=== PATIENT | male | born 1985 | race African-American/Black ===

== ENCOUNTER 2017-05-10 08:03 | Emergency (ER) | payer MEDICAID ==
[~2017-05-10] VITALS: Ht 157.5 cm; Wt 64.0 kg
[~2017-05-10 08:03] MED LIST: CETI10CA PO; FLUT9.9S NASAL; HC1C30 TOP; IBUP800T25 PO; LORA10TA3 PO
[2017-05-10 08:05] VITALS: Ht 157.5 cm; Wt 64.0 kg
[2017-05-10] MEDS ORDERED: IBUPROFEN 800 MG TAB PO ONE (08:30)
[2017-05-10] MEDS ORDERED: IBUP-1542 PO (08:31)
[2017-05-10] MEDS ORDERED: ACET500C5 PO (08:31)
--- NOTE | 2017-05-10 08:36 | ERD ---
ER Documentation Chief Complaint Date/Time DATE: 05/10/17 TIME: 08:33 Chief Complaint right thumb pain/injury HPI This a 31-year-old male who presents to the emergency department today complaining of some right thumb pain. Patient states that he [place] at the car wash when the gait of the truck fell down on his hand. Denies any previous trauma. Denies any fevers or chills per ROS All systems reviewed and are negative except as per history of present illness. Medications Home Meds Active Scripts Acetaminophen* (Tylophen*) 500 Mg Capsule, 1 CAP PO Q6H Y for PAIN AND OR ELEVATED TEMP, #30 CAP Prov:ANTONIO CHRISTENSEN PA-C 05/10/17 Ibuprofen* (Motrin*) 600 Mg Tab, 600 MG PO Q6, #30 TAB Prov:ANTONIO CHRISTENSEN PA-C 05/10/17 Fluticasone Propionate (Flonase Allergy Relief) 9.9 Ml [place].susp, 1 SPRAY NASAL BID, #1 BOTTLE TO EACH NOSTRIL Prov:FAB MUKHERJEE PA-C 02/17/16 Cetirizine Hcl* (Zyrtec*) 10 Mg Capsule, 10 MG PO DAILY, #10 TAB.CHEW Prov:FAB MUKHERJEE PA-C 02/17/16 Ibuprofen* (Motrin*) 800 Mg Tab, 800 MG PO Q6H Y for PAIN AND OR ELEVATED TEMP, #30 TAB Prov:OLIVIA HARTLEY MD 11/29/15 Hydrocortisone* Topical (Hydrocortisone* Topical) 1%-28.35 Gm Cream..g., 1 APPLIC TOP Q6 Y for ITCHING, #1 TUB Prov:MARCELLO WILLOUGHBY PA-C 11/13/15 Loratadine* (Loratadine*) 10 Mg Tablet, 10 MG PO DAILY, #30 TAB Prov:MARCELLO WILLOUGHBY PA-C 11/13/15 Allergies Allergies: Coded Allergies: No Known Allergy (Unverified , 11/13/15) PMhx/Soc History of Surgery: No Anesthesia Reaction: No Hx Neurological Disorder: No Hx Respiratory Disorders: No Hx Cardiac Disorders: No Hx Psychiatric Problems: No Hx Miscellaneous Medical Probl: No Hx Alcohol Use: No Hx Substance Use: No Hx Tobacco Use: No Smoking Status: Never smoker Physical Exam Vitals Vital Signs Date Time Temp Pulse Resp B/P Pulse Ox O2 Delivery O2 Flow Rate FiO2 05/10/17 08:05 98.2 73 18 118/82 99 Physical Exam Const: NAD Head: Atraumatic Eyes: Normal Conjunctiva ENT: Normal External Ears, Nose and Mouth. Neck: Full range of motion..~ No meningismus. Resp: Clear to auscultation bilaterally Cardio: Regular rate and rhythm, no murmurs Abd: Soft, non tender, non distended. Normal bowel sounds Skin: No petechiae or rashes MSK: Right thumb with no obvious deformity. No effusion. No ecchymosis. Full active range of motion. Mild tenderness palpation at metacarpal. Pulses 2 +. Distal neurovascularly intact. Neur: Awake and alert Psych: Normal Mood and Affect Results 24 hrs Current Medications Medications (Trade) Dose Ordered Sig/Wilfred Route PRN Reason Start Time Stop Time Status Last Admin Dose Admin Ibuprofen (Motrin) 800 mg ONCE ONCE PO 05/10/17 08:30 05/10/17 08:31 DC 05/10/17 08:31 Procedures/MDM This 31-year-old male who presents the emergency department today complaining of right thumb pain after dropping the gait of the truck on his thumb. Given that there was trauma and patient did have some mild tenderness palpation I did offer to obtain images. Patient declined stating "I do not think it is broken" . Patient symptoms at this time most consistent with sprain versus strain versus contusion. He did have full active range of motion. Low suspicion for septic joint or gout. Low suspicion for acute fracture dislocation. Patient was given Motrin here in the emergency department and placed a metal splint. I will give him a prescription for Tylenol Motrin for home. At this time the patient is stable for discharge and outpatient management. Patient should follow up with their PCP in the next 1-2 days. I have given him a list of community resources. they may return to the emergency department sooner for any persistent or worsening of symptoms. Patient understood and agreed with the plan. Departure Diagnosis: Primary Impression: Thumb injury Encounter type: initial encounter Laterality: right Qualified Code: S69.91XA - Thumb injury, right, initial encounter Condition: Fair Patient Instructions: Sprain Finger Referrals: COMMUNITY CLINICS YOU HAVE RECEIVED A MEDICAL SCREENING EXAM AND THE RESULTS INDICATE THAT YOU DO NOT HAVE A CONDITION THAT REQUIRES URGENT TREATMENT IN THE EMERGENCY DEPARTMENT. FURTHER EVALUATION AND TREATMENT OF YOUR CONDITION CAN WAIT UNTIL YOU ARE SEEN IN YOUR DOCTORS OFFICE WITHIN THE NEXT 1-2 DAYS. IT IS YOUR RESPONSIBILITY TO MAKE AN APPOINTMENT FOR FOLOW-UP CARE. IF YOU HAVE A PRIMARY DOCTOR --you should call your primary doctor and schedule an appointment IF YOU DO NOT HAVE A PRIMARY DOCTOR YOU CAN CALL OUR PHYSICIAN REFERRAL HOTLINE AT IF YOU CAN NOT AFFORD TO SEE A PHYSICIAN YOU CAN CHOSE FROM THE FOLLOWING [facility] CLINICS [facility] [address] [facility] [address] [facility]. [facility] [address] [facility] [address] [facility]. [facility] [address] [facility]. [facility]. [address] Additional Instructions: Call your primary care doctor TOMORROW for an appointment during the next 1-2 days.See the doctor sooner or return here if your condition worsens before your appointment time. Stay in splint until further evaluation by primary care physician Take Tylenol or Motrin for pain Apply ice to painful area ANTONIO CHRISTENSEN PA-C May 10, 2017 08:36
== END 2017-05-10 08:57 | disposition home or self-care (01) ==
LOC: FTE 08:03
DX: S69.91XA Unspecified injury of right wrist, hand and finger(s), initial encounter (principal); W20.8XXA Other cause of strike by thrown, projected or falling object, initial encounter; Y92.9 Unspecified place or not applicable
CPT/HCPCS: 29125; Z7502; Z7610

== ENCOUNTER 2017-07-11 08:11 | Emergency (ER) | payer MEDICAID ==
[~2017-07-11] VITALS: Wt 70.0 kg
[~2017-07-11 08:11] MED LIST changes: +ACET500C5 PO; +IBUP-1542 PO
[2017-07-11] MEDS ORDERED: HC30CR25 TOP (08:50)
[2017-07-11] MEDS ORDERED: BEN25 PO (08:50)
--- NOTE | 2017-07-11 09:33 | ERD ---
ER Documentation Chief Complaint Date/Time DATE: 07/11/17 TIME: 09:25 Chief Complaint BODY ITCH X 4 YEARS HPI This is a 32 year old male presenting to ER for generalized pruritus x 4 years. No visible rash or lesions. No shortness of breath or difficulty breathing. No wheezing. No swelling. No fevers. No new foods, medications, pets or recent move. Patient states he has not tried any medications for this. He states that he went to a Primary care provider however was never referred to a specialist or given medications. Patient denies having a primary care provider. ROS All systems reviewed and are negative except as per history of present illness. Medications Home Meds Active Scripts Hydrocortisone* Topical (Hydrocortisone* Topical) 2.5%-28.3 Gm Cream..g., 1 APPLIC TOP BID, #1 TUB Prov:JEEVAN LOPEZ NP 07/11/17 Diphenhydramine Hcl* (Benadryl*) 25 Mg Cap, 25 MG PO Q6, #30 CAP Prov:JEEVAN LOPEZ NP 07/11/17 Acetaminophen* (Tylophen*) 500 Mg Capsule, 1 CAP PO Q6H Y for PAIN AND OR ELEVATED TEMP, #30 CAP Prov:ANTONIO CHRISTENSEN PA-C 05/10/17 Ibuprofen* (Motrin*) 600 Mg Tab, 600 MG PO Q6, #30 TAB Prov:ANTONIO CHRISTENSEN PA-C 05/10/17 Fluticasone Propionate (Flonase Allergy Relief) 9.9 Ml [place].susp, 1 SPRAY NASAL BID, #1 BOTTLE TO EACH NOSTRIL Prov:FAB MUKHERJEE PA-C 02/17/16 Cetirizine Hcl* (Zyrtec*) 10 Mg Capsule, 10 MG PO DAILY, #10 TAB.CHEW Prov:FAB MUKHERJEE PA-C 02/17/16 Ibuprofen* (Motrin*) 800 Mg Tab, 800 MG PO Q6H Y for PAIN AND OR ELEVATED TEMP, #30 TAB Prov:OLIVIA HARTLEY MD 11/29/15 Hydrocortisone* Topical (Hydrocortisone* Topical) 1%-28.35 Gm Cream..g., 1 APPLIC TOP Q6 Y for ITCHING, #1 TUB Prov:MARCELLO WILLOUGHBY PA-C 11/13/15 Loratadine* (Loratadine*) 10 Mg Tablet, 10 MG PO DAILY, #30 TAB Prov:MARCELLO WILLOUGHBY PA-C 11/13/15 Allergies Allergies: Coded Allergies: No Known Allergy (Unverified , 11/13/15) PMhx/Soc Medical and Surgical Hx: pt denies Medical Hx, pt denies Surgical Hx History of Surgery: No Anesthesia Reaction: No Hx Neurological Disorder: No Hx Respiratory Disorders: No Hx Cardiac Disorders: No Hx Psychiatric Problems: No Hx Miscellaneous Medical Probl: No Hx Alcohol Use: No Hx Substance Use: No Hx Tobacco Use: No Smoking Status: Never smoker Physical Exam Vitals Vital Signs Date Time Temp Pulse Resp B/P Pulse Ox O2 Delivery O2 Flow Rate FiO2 07/11/17 08:16 98.0 78 18 132/70 99 Physical Exam Const: NAD, alert Head: Atraumatic Eyes: Normal Conjunctiva ENT: Normal External Ears, Nose and Mouth. Neck: Full range of motion..~ No meningismus. Resp: Clear to auscultation bilaterally. No wheezing, rhonchi or crackles. No stridor or labored breathing. Cardio: Regular rate and rhythm, no murmurs Abd: Soft, non tender, non distended. Normal bowel sounds Skin: No petechiae or rashes. No lesions. No erythema or swelling. Back: No midline or flank tenderness Ext: No cyanosis, or edema Neur: Awake and alert Psych: Normal Mood and Affect Procedures/MDM MDM: 32 year old male presents to ER with generalized pruritus x 4 years. Vitals are stable. No visible rash or irritation on physical exam. No lesions. There appears to be dry skin throughout on physical exam. Patient is alert and oriented throughout visit and appears stable for discharge home. Low suspicion for scabies, anaphylaxis reaction or acute allergic reaction. Differential diagnosis includes but not limited to atopic dermatitis, contact dermatitis psoriasis and allergic reaction. Patient is appropriate for outpatient management and will be given prescriptions for Benadryl and hydrocortisone cream. Instructed patient to follow up with PCP in the next 2-3 days for reassessment and additional management. Resources provided. Return to ED for any new or worsening symptoms. Patient verbalizes understanding. All questions answered at discharge. Departure Diagnosis: Primary Impression: Generalized pruritus Condition: Stable Patient Instructions: Atopic Dermatitis (Eczema) Referrals: YOEL HAYS MD, [facility] YOU HAVE RECEIVED A MEDICAL SCREENING EXAM AND THE RESULTS INDICATE THAT YOU DO NOT HAVE A CONDITION THAT REQUIRES URGENT TREATMENT IN THE EMERGENCY DEPARTMENT. FURTHER EVALUATION AND TREATMENT OF YOUR CONDITION CAN WAIT UNTIL YOU ARE SEEN IN YOUR DOCTORS OFFICE WITHIN THE NEXT 1-2 DAYS. IT IS YOUR RESPONSIBILITY TO MAKE AN APPOINTMENT FOR FOLOW-UP CARE. IF YOU HAVE A PRIMARY DOCTOR --you should call your primary doctor and schedule an appointment IF YOU DO NOT HAVE A PRIMARY DOCTOR YOU CAN CALL OUR PHYSICIAN REFERRAL HOTLINE AT IF YOU CAN NOT AFFORD TO SEE A PHYSICIAN YOU CAN CHOSE FROM THE FOLLOWING [facility] [address] [facility] [address] [facility]. [facility] [address] [facility] [address] [facility] [address] [facility] [facility]. [address] [facility]. [facility] YOU HAVE RECEIVED A MEDICAL SCREENING EXAM AND THE RESULTS INDICATE THAT YOU DO NOT HAVE A CONDITION THAT REQUIRES URGENT TREATMENT IN THE EMERGENCY DEPARTMENT. FURTHER EVALUATION AND TREATMENT OF YOUR CONDITION CAN WAIT UNTIL YOU ARE SEEN IN YOUR DOCTORS OFFICE WITHIN THE NEXT 1-2 DAYS. IT IS YOUR RESPONSIBILITY TO MAKE AN APPOINTMENT FOR FOLOW-UP CARE. IF YOU HAVE A PRIMARY DOCTOR --you should call your primary doctor and schedule and appointment IF YOU DO NOT HAVE A PRIMARY DOCTOR YOU CAN CALL OUR PHYSICIAN REFERRAL HOTLINE AT . IF YOU CAN NOT AFFORD TO SEE A PHYSICIAN YOU CAN CHOSE FROM THE FOLLOWING [facility]: [facility] [address] [place] [address] [facility] [address] [place] [address] [facility] [address] [place] [address] Additional Instructions: Call your primary care doctor TOMORROW for an appointment during the next 2-3 days.See the doctor sooner or return here if your condition worsens before your appointment time. Return to ED for any new or worsening symptoms. JEEVAN LOPEZ NP Jul 11, 2017 09:33
== END 2017-07-11 09:03 | disposition home or self-care (01) ==
LOC: FTE 08:11
DX: L29.9 Pruritus, unspecified (principal)
CPT/HCPCS: 99283

== ENCOUNTER 2017-10-16 18:42 | Emergency (ER) | payer MEDICAID ==
[~2017-10-16] VITALS: Ht 172.7 cm; Wt 66.1 kg
[~2017-10-16 18:42] MED LIST changes: +BEN25 PO; +HC30CR25 TOP
[2017-10-16 19:06] VITALS: Ht 172.7 cm; Wt 66.1 kg
[2017-10-16] MEDS ORDERED: KETOROLAC 60 MG INJ IM STA (20:32)
[2017-10-16] MEDS ORDERED: DIPHENHYDRAMINE 25 MG CAP PO ONE (21:00)
[2017-10-16] MEDS ORDERED: CLOT30CR24 TOP (21:16)
[2017-10-16] MEDS ORDERED: BEN25 PO (21:16)
[2017-10-16] MEDS ORDERED: IBUP-1542 PO (21:16)
[2017-10-16 21:32] VITALS: BP 132/91; PULSE 65; RESP 16; TEMP 98.4
--- NOTE | 2017-10-16 21:32 | ERD ---
ER Documentation Chief Complaint Chief Complaint headache, body itchiness HPI 32-year-old male patient with no significant past medical history presents to the ED complaining of a sudden onset of headache started this morning. Patient describes the pain as a pressure-like sensation and rates it a 5 out of 10. Reports that sexually active with one partner. States that he is itchy all over predominantly in his genitalia. Denies any penile discharge, scrotal pain. Denies any dysuria, urgency, frequency, abdominal pain, nausea, vomiting , fever. ROS All systems reviewed and are negative except as per history of present illness. Medications Home Meds Active Scripts Clotrimazole* (Clotrimazole* AF) 1% - 30 Gm Cream.gm., 1 APPLIC TOP BID for 28 Days, #1 TUB Prov:ERNA GLORIA PA-C 10/16/17 Ibuprofen* (Motrin*) 600 Mg Tab, 600 MG PO Q6, #30 TAB Prov:ERNA GLORIA PA-C 10/16/17 Diphenhydramine Hcl* (Benadryl*) 25 Mg Cap, 25 MG PO Q6 Y for ITCHING/RASH, #30 TAB Prov:ERNA GLORIA PA-C 10/16/17 Hydrocortisone* Topical (Hydrocortisone* Topical) 2.5%-28.3 Gm Cream..g., 1 APPLIC TOP BID, #1 TUB Prov:JEEVAN LOPEZ NP 07/11/17 Diphenhydramine Hcl* (Benadryl*) 25 Mg Cap, 25 MG PO Q6, #30 CAP Prov:JEEVAN LOPEZ NP 07/11/17 Acetaminophen* (Tylophen*) 500 Mg Capsule, 1 CAP PO Q6H Y for PAIN AND OR ELEVATED TEMP, #30 CAP Prov:ANTONIO CHRISTENSEN PA-C 05/10/17 Ibuprofen* (Motrin*) 600 Mg Tab, 600 MG PO Q6, #30 TAB Prov:ANTONIO CHRISTENSEN PA-C 05/10/17 Fluticasone Propionate (Flonase Allergy Relief) 9.9 Ml [place].susp, 1 SPRAY NASAL BID, #1 BOTTLE TO EACH NOSTRIL Prov:FAB MUKHERJEE PA-C 02/17/16 Cetirizine Hcl* (Zyrtec*) 10 Mg Capsule, 10 MG PO DAILY, #10 TAB.CHEW Prov:FAB MUKHERJEE PA-C 02/17/16 Ibuprofen* (Motrin*) 800 Mg Tab, 800 MG PO Q6H Y for PAIN AND OR ELEVATED TEMP, #30 TAB Prov:OLIVIA HARTLEY MD 11/29/15 Hydrocortisone* Topical (Hydrocortisone* Topical) 1%-28.35 Gm Cream..g., 1 APPLIC TOP Q6 Y for ITCHING, #1 TUB Prov:MARCELLO WILLOUGHBY PA-C 11/13/15 Loratadine* (Loratadine*) 10 Mg Tablet, 10 MG PO DAILY, #30 TAB Prov:MARCELLO WILLOUGHBY PA-C 11/13/15 Allergies Allergies: Coded Allergies: No Known Allergy (Unverified , 11/13/15) PMhx/Soc Medical and Surgical Hx: pt denies Medical Hx, pt denies Surgical Hx History of Surgery: No Anesthesia Reaction: No Hx Neurological Disorder: No Hx Respiratory Disorders: No Hx Cardiac Disorders: No Hx Psychiatric Problems: No Hx Miscellaneous Medical Probl: No Hx Alcohol Use: No Hx Substance Use: No Hx Tobacco Use: No Physical Exam Vitals Vital Signs Date Time Temp Pulse Resp B/P Pulse Ox O2 Delivery O2 Flow Rate FiO2 10/16/17 19:06 98.5 76 20 130/66 100 Physical Exam Const: Kfa-[id number], well-nourished. In no acute distress. Head: Atraumatic, normocephalic Eyes: Normal Conjunctiva without injection. No purulent discharge. ENT: Normal external ear, nose. Moist oropharynx without tonsillar exudates. Non -erythematous pharynx. Uvula midline. No drooling. No trismus. Neck: No cervical midline tenderness. Full range of motion. No meningismus. No cervical lymphadenopathy. No JVD. Resp: Clear to auscultation bilaterally. No wheezing, rhonchi, rales, or crackles. No accessory muscle use. No retractions. Cardio: Regular rate and rhythm. No murmurs, rubs or gallops. Abd: Soft, nontender, non distended. Normal bowel sounds. No palpable masses. No rebound tenderness. No guarding. Negative McBurney's point. Negative psoas sign. Negative obturator sign. Skin: No petechiae or rashes : No phimosis. No paraphimosis. No penile discharge. Moist dry flaky rash between the inner thighs. No erythema, edema or fluctuance noted. Back: No midline tenderness. No CVA tenderness. Ext: No cyanosis, or edema. Neur: Awake and alert. Normal gait. Normal coordination. Psych: Normal Mood and Affect Results 24 hrs Current Medications Medications (Trade) Dose Ordered Sig/Wilfred Route PRN Reason Start Time Stop Time Status Last Admin Dose Admin Ketorolac Tromethamine (Toradol) 60 mg ONCE STAT IM 10/16/17 20:32 10/16/17 20:33 DC 10/16/17 21:01 Diphenhydramine HCl (Benadryl) 25 mg ONCE ONCE PO 10/16/17 21:00 10/16/17 21:01 DC 10/16/17 21:01 Procedures/MDM 32-year-old male patient with no significant past medical history presents to the ED complaining of itchiness all over his body especially in his genitalia and a headache. Patient is afebrile and nontoxic-appearing. Patient has normal vital signs. She was given Toradol and Benadryl here in the ED with improvement of her symptoms. Patient could likely have a tinea infection of the genitalia. Patient reports that he has 1 sexual partner and is not concerned for STDs. No vesicles. Low suspicion for anaphylaxis, scabies, SJS/TEN , TSS, Lyme's Disease, syphilis, RMSF, shingles, disseminated gonorrhea chlamydia, DIC, TTP, ITP, erythema multiforme, sepsis, cellulitis, necrotizing fascitis, gangrene, meningococcemia, allergic contact dermatitis, urticaria, eczema, or other emergent conditions. He could also likely has tension headaches. Low suspicion for intracranial bleed, subarachnoid hemorrhage, meningitis, TIA, stroke, seizures, subdural hematoma, epidural hematoma, or other emergent conditions. Discharge medications: Ibuprofen, Benadryl, Clotrimazole Follow up with primary care physician in 1-2 days for a referral to see a manager strategic development. Instructed patient to return to the ED sooner for any worsening symptoms. Patient's questions were answered. Patient understood and agreed with discharge plan. Patient discharged stable. Departure Diagnosis: Primary Impression: Headache Headache type: unspecified Headache chronicity pattern: unspecified pattern Intractability: not intractable Qualified Code: R51 - Nonintractable headache, unspecified chronicity pattern, unspecified headache type Additional Impression: Itching Condition: Stable Patient Instructions: Self-Care for Skin Rashes, Tinea Cruris, Jock Itch, Headache, Unspecified Referrals: [facility] YOU HAVE RECEIVED A MEDICAL SCREENING EXAM AND THE RESULTS INDICATE THAT YOU DO NOT HAVE A CONDITION THAT REQUIRES URGENT TREATMENT IN THE EMERGENCY DEPARTMENT. FURTHER EVALUATION AND TREATMENT OF YOUR CONDITION CAN WAIT UNTIL YOU ARE SEEN IN YOUR DOCTORS OFFICE WITHIN THE NEXT 1-2 DAYS. IT IS YOUR RESPONSIBILITY TO MAKE AN APPOINTMENT FOR FOLOW-UP CARE. IF YOU HAVE A PRIMARY DOCTOR --you should call your primary doctor and schedule an appointment IF YOU DO NOT HAVE A PRIMARY DOCTOR YOU CAN CALL OUR PHYSICIAN REFERRAL HOTLINE AT IF YOU CAN NOT AFFORD TO SEE A PHYSICIAN YOU CAN CHOSE FROM THE FOLLOWING [facility] [address] [facility] [place]. [facility] [address] [facility] [address] [facility] [address] [facility] [address] [facility]. [facility] [address] [facility]. [facility] YOU HAVE RECEIVED A MEDICAL SCREENING EXAM AND THE RESULTS INDICATE THAT YOU DO NOT HAVE A CONDITION THAT REQUIRES URGENT TREATMENT IN THE EMERGENCY DEPARTMENT. FURTHER EVALUATION AND TREATMENT OF YOUR CONDITION CAN WAIT UNTIL YOU ARE SEEN IN YOUR DOCTORS OFFICE WITHIN THE NEXT 1-2 DAYS. IT IS YOUR RESPONSIBILITY TO MAKE AN APPOINTMENT FOR FOLOW-UP CARE. IF YOU HAVE A PRIMARY DOCTOR --you should call your primary doctor and schedule and appointment IF YOU DO NOT HAVE A PRIMARY DOCTOR YOU CAN CALL OUR PHYSICIAN REFERRAL HOTLINE AT . IF YOU CAN NOT AFFORD TO SEE A PHYSICIAN YOU CAN CHOSE FROM THE FOLLOWING [facility] INSTITUTIONS: [facility] [address] [place] [address] [facility] [address] [place] [address] [facility] + [facility] [address] [place] [address] [facility] Additional Instructions: Call your primary care doctor TOMORROW for an appointment during the next 2-3 days.See the doctor sooner or return here if your condition worsens before your appointment time. ERNA GLORIA PA-C Oct 16, 2017 21:32
== END 2017-10-16 21:34 | disposition home or self-care (01) ==
LOC: FTE 18:42
DX: R51 Headache (principal); L29.9 Pruritus, unspecified
CPT/HCPCS: 96372; J1885; Z7502; Z7610

== ENCOUNTER 2017-11-30 18:21 | Emergency (ER) | END 2017-11-30 19:16 | disposition home or self-care (01) ==

== ENCOUNTER 2018-01-01 12:02 | Emergency (ER) | END 2018-01-01 12:26 | disposition home or self-care (01) ==

== ENCOUNTER 2018-02-13 16:48 | Emergency (ER) | END 2018-02-13 17:34 | disposition home or self-care (01) ==

== ENCOUNTER 2018-02-20 22:32 | Emergency (ER) | END 2018-02-21 00:15 | disposition home or self-care (01) ==